=== PATIENT | female | born 1980 | race African-American/Black ===

== ENCOUNTER 2019-06-03 09:41 | Outpatient (CLI) | payer OTHER, SELFPAY ==
[2019-06-03 10:53] LABS: Basophils Percent Auto 0.3 % (0.2-1.2); Eosinophils Absolute Auto 0.2 K/mm3 (0-0.3); Eosinophils Percent Auto 2.3 % (0-4.4); Hematocrit 36.5 % (37.0-47.0); Hemoglobin 11.2 g/dL (12.0-15.0); Immature Granulocyte Absolute 0.05 K/mm3 (0.00-0.031); Immature Granulocyte Percent A 0.6 % (0-0.5); Lymphocytes Absolute Auto 1.53 K/mm3 (0.9-3.2); Lymphocytes Percent Auto 17.3 % (18.3-44.2); Mean Corpuscular HGB Conc 30.7 g/dl (32-36); Mean Corpuscular Hemoglobin 23.8 pg (26-34); Mean Corpuscular Volume 77.7 fl (80-100); Mean Platelet Volume 9.5 fl (7.4-10.4); Monocytes Absolute Auto 0.6 K/mm3 (0.1-0.6); Monocytes Percent Auto 6.7 % (2.6-8.5); Neutrophils Absolute Auto 6.4 K/mm3 (1.3-6.7); Neutrophils Percent Auto 72.8 % (45.5-73.1); Platelet Count Result 362 k/mm3 (150-375); White Blood Count 8.8 K/mm3 (4.5-10.0)
[2019-06-03 11:07] LABS: Alanine Aminotransferase 10 U/L (4-35); Albumin Level 4.2 g/dL (3.5-5.1); Alkaline Phosphatase 85 U/L (38-126); Aspartate Amino Transferase 18 U/L (14-36); Bilirubin,Total 0.3 mg/dL (0.2-1.3); Blood Urea Nitrogen 7 mg/dL (7-17); Calcium 8.7 mg/dL (8.4-10.2); Carbon Dioxide 27 mmol/L (22-30); Chloride 100 mmol/L (98-107); Estimated Glomerular Filt Rate > 60; Glucose 81 mg/dL (65-105); Potassium 3.8 mmol/L (3.4-5.0); Sodium 139 mmol/L (137-145)
[2019-06-03 11:34] LABS: Free T4 Free Thyroxine 0.95 ng/mL (0.78-2.19); Vitamin D 25 Hydroxy 41.8 ng/mL
[2019-06-03 12:12] LABS: Folic Acid 11.5 ng/mL (2.76->20)
[2019-06-10 22:47] LABS: Vitamin D 1,25 (OH)2 Total 46 pg/mL (18-72); Vitamin D2 1,25 (OH)2 46 pg/mL; Vitamin D3 1,25 (OH)2 <8 pg/mL
== END 2019-06-03 09:42 | disposition home or self-care (01) ==
LOC: ANHLAB 09:46
PROVIDERS: PCP Psychiatry & Neurology Neurology; Visit Provider Psychiatry & Neurology Neurology
DX: G35 Multiple sclerosis (principal)
CPT/HCPCS: 36415; 80053; 82306; 82607; 82652; 82746; 84439; 85025

== ENCOUNTER 2024-08-10 09:20 | Outpatient (CLI) | payer OTHER, MEDICAID, SELFPAY ==
--- NOTE | ~2024-08-10 | MR_ITS ---
MRI of the thoracic spine Clinical History: Multiple sclerosis Technique: Axial T2-weighted and gradient images, and sagittal T1-weighted, T2-weighted, and STIR lilli ges were acquired. Following intravenous administration of 20 cc ProHance gadolinium, T1-weighted fat -sat imaging was performed in the axial and sagittal planes. Findings: There is no fracture or subluxation of the thoracic spine. Vertebral bodies maintain normal height and alignment. No bone marrow signal abnormality seen. No disc bulge or herniation seen at any thoracic level. No spinal canal stenosis or cord compression identified. There is bilateral neural foraminal narrowing at T10-T11, left worse than right, with fac et arthropathy at this level. Remaining neural foramina are preserved. No abnormal signal evident in the spinal cord. Paravertebral soft tissues are unremarkable. No abnorm al postcontrast enhancement identified. Impression: No cord lesions identified in the thoracic spinal cord. Bilateral neural foraminal narrowing at T10-T11, left worse than right, largely related to facet arth ropathy. Reviewed, dictated and finalized at [facility]. Impression: No cord lesions identified in the thoracic spinal cord. Bilateral neural foraminal narrowing at T10-T11, left worse than right, largely related to facet arthropathy.
--- NOTE | ~2024-08-10 | MR_ITS ---
MRI of the cervical spine Clinical History: Multiple sclerosis Technique: Axial T2-weighted and gradient images, and sagittal T1-weighted, T2-weighted, and STIR lilli ges were acquired. Following intravenous administration of 20 cc ProHance gadolinium, T1-weighted fat -sat imaging was performed in the axial and sagittal planes. Findings: There is no fracture or subluxation of the cervical spine. There is mild reversal normal ce rvical lordosis. No suspicious bone marrow signal abnormality seen. No significant disc bulge or herniation seen at any cervical level. No spinal canal stenosis, cord co mpression, or neural foraminal narrowing evident at any cervical level. There is a subtle T2 hyperintense cord lesion centrally at the C3-C4 level. Probable additional amorp hous T2 evidence lesion in the cord at the C2 level. Paravertebral soft tissues are unremarkable. No abnormal postcontrast enhancement identified. Impression: Probable vague T2 hyperintense cord lesions at the C2 level and C3-C4 level, which could reflect demy elinating plaques of multiple sclerosis. No abnormal enhancement. No significant degenerative change. Reviewed, dictated and finalized at [facility]. Impression: Probable vague T2 hyperintense cord lesions at the C2 level and C3-C4 level, wh ich could reflect demyelinating plaques of multiple sclerosis. No abnormal enha ncement. No significant degenerative change.
--- NOTE | ~2024-08-10 | MR_ITS ---
MRI of the brain Clinical History: Multiple sclerosis Technique: Axial and sagittal T1-weighted images were acquired. These were followed by axial T2-weigh estefania, diffusion weighted, gradient, and FLAIR images. Following intravenous administration of 20 cc Pr oHance gadolinium, T1-weighted fat-sat imaging was performed in the axial, coronal, and sagittal plan es. Findings: No acute infarct, intracranial hemorrhage, or mass lesion. There are multiple FLAIR hyperin tense white matter lesions in the periventricular white matter bilaterally, may which demonstrate rafi ewhat radiating orientation. Ventricles and subarachnoid spaces are unremarkable. Orbits are unremarkable. Paranasal sinuses and m astoid air cells are clear. Major intracranial flow voids are intact. Sagittal midline structures are intact. No abnormal postcontrast enhancement identified. IMPRESSION: Numerous white matter lesions, compatible with demyelinating lesions of multiple sclerosis. No active /enhancing plaque identified. Reviewed, dictated and finalized at location . IMPRESSION: Numerous white matter lesions, compatible with demyelinating lesions of multipl e sclerosis. No active/enhancing plaque identified.
--- OUTSIDE RECORDS SUMMARY | 2024-08-10 09:58 | XMS_ITS | Encounter Summary ---
Author Organization [facility] Address [address] [place] [address] Phone Care Team Providers Care Shipping Support Name Role Phone Sharifa Deleon NP Primary Care Provider [phone] Dann Rincon MD Primary Care Provider + Encounter Details Date Type Department Care Team (Latest Contact Info) Description 07/31/2017 Orders Only [facility] CONVERSION Scanning, Provider Social History Tobacco Use Types Packs/Day Years Used Date Smoking Tobacco: Never Assessed Comments Unknown Sex and Gender Information Value Date Recorded Sex Assigned at Not on file Legal Sex Female 10:49 PM CDT Gender Identity Not on file Sexual Orientation Not on file documented as of this encounter Plan of Treatment Not on file documented as of this encounter Procedures Procedure Name Priority Date/Time Associated Diagnosis Comments OBSTETRIC/GYNECOLOGY ULTRASONOGRAPHY REPORT 08/27/2017 11:46 AM CDT OBSTETRIC/GYNECOLOGY ULTRASONOGRAPHY REPORT 07/31/2017 11:38 AM CDT documented in this encounter Results * OBSTETRIC/GYNECOLOGY ULTRASONOGRAPHY REPORT (08/27/2017 11:46 AM CDT) Anatomical Region Laterality Modality Ultrasound us Provider Scanning IMG OB US PROCEDURES Final Res ult * OBSTETRIC/GYNECOLOGY ULTRASONOGRAPHY REPORT (07/31/2017 11:38 AM CDT) Anatomical Region Laterality Modality Ultrasound us Provider Scanning IMG OB US PROCEDURES Final Res ult documented in this encounter Visit Diagnoses Not on filedocumented in this encounter Care Teams Shipping Support Relationship Specialty Start Date End Date Sharifa Deleon NP PCP - General 10/04/16 01/17/20 Dann Rincon MD [address] [place] [id number] PCP - General Internal Medicine 01/18/20 documented as of this encounter
--- OUTSIDE RECORDS SUMMARY | 2024-08-10 09:58 | XMS_ITS | Encounter Summary ---
Author Organization [facility] Address [address] [place] [address] Phone Care Team Providers Care Flat Breakdown Processor Name Role Phone Sharifa Deleon NP Primary Care Provider [phone] Dann Rincon MD Primary Care Provider + Encounter Details Date Type Department Care Team (Late st Contact Info) Description 08/07/2017 Orders Only [facility] ProviderAshley MD [address] [place] [id number] Social History Tobacco Use Types Packs/Day Years [...] Procedure Name Priority Date/Time Associated Diagnosis Comments DISCHARGE LABORATORY CUMULATIVE REPORT 08/07/2017 12:00 AM CDT documented in this encounter Results * DISCHARGE LABORATORY CUMULATIVE REPORT (08/07/2017 12:00 AM CDT) Narrative 08/07/2017 12:00 AM CDT Ordered by an unspecified provider. Historical Provider LAB BLOOD ORDERABLES Mare l Result documented in this encounter Visit Diagnoses Not on filedocumented in this encounter Care Teams Flat Breakdown Processor Relationship Specialty Start Date End Date Sharifa Deleon NP PCP - General 10/04/16 01/17/20 Dann Rincon MD [address] [place] [address] PCP - General Internal Medicine 01/18/20 documented as of this encounter
--- OUTSIDE RECORDS SUMMARY | 2024-08-10 09:58 | XMS_ITS | Clinical Summary ---
Author Organization [facility] Address [address] [place] [address] Care Team Providers Care Tower Supervisor Name Role Phone Unavailable Primary Care Provider Unavailabl e Source Comments [facility],non-owned Affiliates and Associated Physician Practices is amultiple site organization consisting of ambulatory clinics and hospital sitesin [place], [place] and [place]. This disclosure is being madepursuant to the Care Everywhere program and may not contain all information available regarding this patient. Last updated 18.[facility] Social History Tobacco Use Types Packs/Day Years Used Date Smoking Tobacco: Never Assessed Comments No Sex and Gender Information Value Date Recorded Sex Assigned at Not on file Legal Sex Female 7:23 AM SUPERVISOR TESTING Gender Identity Not on file Sexual Orientation Not on file Plan of Treatment Health Maintenance Due Date Last Done Comments LIPID TESTING 1981 MAMMOGRAM 1981 HIV SCREENING 1996 HEPATITIS C SCREENING 10/01/1999 DTAP/TDAP/TD VACCINES (1 - Tdap) 2000 HEPATITIS B VACCINE (1 of 3 - 19+ 3-dose series) 2000 COVID-19 VACCINE ( - 2023-2 5 season) 2023 DEPRESSION SCREENING 04/13/2024 INFLUENZA VACCINE (Season Ended) 2024 ZOSTER VACCINE (1 of 2) 10/06/2031 HIB VACCINE Aged Out No longer eligi ble based on patient's age to complete this topic HPV VACCINE Aged Out No longer eligi ble based on patient's age to complete this topic MENINGOCOCCAL (Group B) VACC INE SHARED DECISION-MAKING Aged Out No longer eligibl e based on patient's age to complete this topic MENINGOCOCCAL GROUPS A/C/Y/W VACCINE Aged Out No longer eligible b ased on patient's age to complete this topic PNEUMOCOCCAL VACCINE Aged Out No long er eligible based on patient's age to complete this topic
--- OUTSIDE RECORDS SUMMARY | 2024-08-10 09:59 | XMS_ITS | Referral Summary ---
Author Organization [facility] Address [address] [place] [address] Care Team Providers Care Python Django Developer Name Role Phone Dann Rincon MD Primary Care Provider + Encounters Date Type Department Care Team Description 07/23/2024 1:55 AM CDT - 07/23/2024 3:00 AM CDT Emergency [address] [address] Pruritic dermatitis (Primary Dx) Discharge Disposition: Discharge to home or self care from Last 3 Months Allergies No known active allergies Medications Tecfidera 240 mg capsule,delayed release(DR/EC) daily 0 Active cholecalciferol (VITAMIN D-3) 50,000 unit capsule Take 1 capsule (50,000 Units total) by mouth once a week 3 Active Aczone 7.5 % gel with pump Apply topically daily 4 Active spironolactone (ALDACTONE) 100 mg tablet Take 1 tablet (100 mg total) by mouth daily 4 Active tretinoin (RETIN-A) 0.05 % cream Apply topically nightly 4 Active predniSONE (DELTASONE) 20 mg tablet Take 1 tablet (20 mg) by mouth daily for 5 days 5 tablet 5 07/29/19 25 Active Problems Problem Noted Date Diagnosed Date Rash 11/19/2022 Assessment & Plan (11/19/2022 10:02 AM CDT): Onset 2 weeks ago, didn't improve after prednisone pack.Will try triamcinolone cream. Discussed with pt to change detergent. Morbid obesity with BMI of 40.0-44.9, adult 10/2019 Assessment & Plan (09/14/2023 2:13 PM CDT): Patient lost near 40 lb on phentermine which she stopped 4 months ago due to weight plateau. Since then gained 15 lb back. Eating more. I discussed with patient medical treatment options. She has not diabetic and GLP-1 will not be covered by insurance. Patient did not want to pay out of the pocket. She agreed to try phentermine again. Also discussed importance of eating less and start exercising. Assessment & Plan (11/19/2022 10:00 AM CDT): Improving, cont weight loss Assessment & Plan (01/16/2021 9:29 AM CDT): BMI Follow-up includes: nutrition counseling. Stress weight loss. Will refer to mobile unit assistant. Assessment & Plan (01/18/2020 1:42 PM CDT): BMI Follow-up includes: exercise counseling. Wellness examination 09/22/2017 Assessment & Plan (11/19/2022 10:03 AM CDT): Recent labs 2 months ago: CMP, lipid panel, thyroid function, hemoglobin A1c were normal. CBC showed mild anemia with hemoglobin 10.9 with baseline 10.2 to 11.5. Last pap 1 y ago, was done by ICT ANALYST. Stress more weight loss. Assessment & Plan (01/16/2021 9:22 AM CDT): Stress weight loss. Consider covid shots. Multiple sclerosis 10/07/2016 Overview (01/11/2018): - Diagnosed 09/2016. Flare symptoms: tingling in the hands and feet. Asymptomatic this . - Previously discussed that MS often improves in and worsens in the PP period. - Brain MRI (06/10/2017): Multiple intracranial white matter lesions compatible with multiple sclerosis, as well as a lesion in the dorsal cervical cord. Other significant findings: Empty sella. - Follows with [facility] Neurology. - Per Neuro (06/2017): discontinued pre-pregnacy Tecfidera 240mg BID and Meclizine TID PRN. - Last Neuro visit (08/18/2017): consider Tysabri and/or Tecfidera if not - Visit 12/17: Tecfidera on PPD1 if not Plan: - Continue to follow up with Neurology as scheduled. Per 12/17 note, plan was to start Tecfidera 1 day post delivery (not safe in breast feeding) - Patient planning to breastfeed, discuss with neurology inpatient HOSPITAL PLAN: - Restart Tecfidera 1 day post delivery. In discussion with patient, she plans on bottle feeding. Assessment & Plan (11/19/2022 10:01 AM CDT): Follows with neurologist. Stable on tecfidera. Assessment & Plan (01/16/2021 9:21 AM CDT): Follows with neurologist. Stable on tecfidera. Assessment & Plan (01/18/2020 1:29 PM CDT): Stable on Tecfidera. Follows with neurology. Resolved Problems Problem Noted Date Diagnosed Date Resolved Date Physical exam, pre-employment 12/27/2021 11/19/2022 Assessment & Plan (12/27/2021 10:01 AM CDT): No abnormal findings on physical exam to preclude employment. Administered the 1st step of 2 step PPD test, advised will need to have site read in 48-72 hours, and to return in 1-3 weeks to have 2nd step of PPD test placed. A urine specimen was collected for 5 panel drug screen. Drug screening, pre-employment 12/27/2021 11/19/2022 Assessment & Plan (12/27/2021 10:01 AM CDT): Administered the 1st step of 2 step PPD test, advised will need to have site read in 48-72 hours, and to return in 1-3 weeks to have 2nd step of PPD test placed. PPD screening test 12/27/2021 3 Assessment & Plan (12/27/2021 10:01 AM CDT): A urine specimen was collected for 5 panel drug screen. Daytime somnolence 01/16/2021 3 Assessment & Plan (11/19/2022 10:05 AM CDT): Resolved on it's own. Pt didn't do sleep study Assessment & Plan (01/16/2021 9:29 AM CDT): Will refer to sleep study for possible ADRIEN. Stress weight loss, it can greatly contribute to ADRIEN. delivery, delivered , current hospitalization 01/12/2018 01/18/2020 Overview (01/13/2018): #ID: Afebrile. No signs/symptoms of infection. HepB neg, HIV neg, Rubella immune #Heme: EBL 800 mL. hematocrit 34.6 --> 32.0. No symptoms acute blood loss anemia. Rh neg and infant Rh +, Rhogam administered 11/24 and 01/12. #CV/Pulm: --Chronic hypertension , normal to mild range, asymptomatic, no indication for medical therapy at this time. CTM BP today. #GI/: Tolerating PO. Voiding spontaneously. #Pain: Controlled with oral regimen. #DVT prophylaxis: sequential compression devices; no indication for prophylactic lovenox at this time - only 2 moderate risk factors (obesity, age >35) does not meet criteria #MOC: s/p BTL #MOF: Formula feeding #MS: started own Tecfidera as not on formulary - pharmacy aware; with neuro follow-up on 04/08/2018 #Disposition: Patient desires early discharge if possible - meeting post-op milestones. Delivery by elective section 01/11/2018 01/18/2020 Overview (01/11/2018): - Consents signed - T&S/CBC sent - BTL papers mature and visualized Supervision of high-risk pre gnancy, third trimester 12/29/2017 01/18/2020 Overview (12/29/2017): Added automatically from request for surgery [id number] Rh negative state in antepartum period 12/08/2017 01/18/2020 Overview (12/29/2017): - Rh negative. - s/p Rhogam on 11/24/17. - For PP work up. Chronic hypertension 09/15/2017 020 Overview (01/11/2018): - No meds, BP wnl - s/p counseling on risk of cHTN in including preE, eclampsia, abruption, IUGR, PTB, stillbirth. Checklist: [x] Baseline labs (06/18/17): AST/ALT 28/01, Cr 0.54. Plts 332 (11/2017). EKG sinus tachycardia o/w WNL [x] 24hr UP (10/20/17): 94 [x] EKG: sinus tachy [x] TTE- nl with nl EF [] ASA81 - has not been taking previously. Will no longer pursue given GA >32wk [] No indication for testing given no medications required. [x] Serial growth US q4wks. Last 12/03/17: 2038g (18%), next scheduled 12/31 [] For delivery at 39wks Plan: - Continue to take BP at home (reports 120's/70's) - Continue q4wk growth US (12/31) - Counselled on preeclampsia symptoms. HOSPITAL PLAN: - Asymptomatic and normotensive on admission - CTM BP while inpatient Assessment & Plan (09/22/2017 11:10 AM CDT): [] f/up echo [] baseline 24h urine History of delivery 09/15/2017 01/18/2020 Overview (12/08/2017): - C/S x1 2/2 breech - Discussed riks/benefits/alternatives of TOLAC versus repeat including rupture and bleeding/infection/damage to surrounding organs. - Patient would like a repeat CS with BTL Supervision of high-risk pre gnancy, unspecified trimester 09/15/2017 01/18/2020 Overview (01/11/2018): IOB Labs: [x] Dating Criteria: 2nd trim US [x] Labs: Rh B negative, Ab negative, Rubella immune, HIV negative, HepBSAg negative, RPR negative [x] Genetic Screening: cffDNA low risk [x] Hgb electrophoresis: AA [x] GC/CT,UCx-insig growth [x] Pap: cotesting negative (08/04/17) [] PNBHS referral (if indicated) 2nd Tri Labs: [x] Anatomy scan: EIF noted, otherwise normal. [x] CBC: Hgb 10.7, plts 332 [x] 1hr gtt at 24-28wks: 113. [] Flu Shot (Dec-Mar) [x] Tdap (27-36wks) - given 11/24 [x] Rhogam (if Rh neg) - given 11/24 3rd Tri Labs: [x] CBC/HIV/RPR/T&S [x] GBS: neg [x] GC/CT (if indicated): neg/neg Counselling [x] MOD: Plans to have repeat CS+BTL, 01/11 1130 for 1330 [x] MOC: BTL- tubal papers signed 09/22/17 [x] Method of feeding: Initially planning bottle, s/p counseling, considering breast feeding for first 2 weeks PP [x] Assistant Store Manager: Patient still considering [x] Car seat Discussed [x] PP Depression Discussed [x] s/p /4 attending visits Antepartum multigravida of a dvanced maternal age 0609/15/2017 01/18/2020 Overview (12/08/2017): - EIF on anatomy, o/w WNL - NIPT WNL Immunizations Immunization Administration Dates Next Due Influenza, Unspecified 10/26/2023(Deferr ed: Patient decision),01/13/2022(Deferred: Patient decision) PPD TEST 12/27/2021 Tdap 11/24/2017 Social History Tobacco Use Types Packs/Day Years Used Date Smoking Tobacco: Never Smokeless Tobacco: Never Tobacco Cessation:Counseling Given: Not Answered Alcohol Use Standard Drinks/Week Comments Yes 0 (1 standard drink = 0.6 oz pur e alcohol) socially AUDIT-C Answer Date Recorded Q1: How often do you have a drink containing alcohol? Never 09/14/2023 Q2: How many drinks containi ng alcohol do you have on a typical day when you are drinking? Patient does not drink Q3: How often do you have si x or more drinks on one occasion? Never 09/14/2023 PHQ-2 Answer Date Recorded PHQ-2 Total Score 0 09/14/2023 Personal Safety Answer Date Recorded Have you ever been in or are you currently in a harmful physical or emotional relationship or is someone making you feel afraid or unsafe? Denies 07/23/2024 Comments No Sex and Gender Information Value Date Recorded Sex Assigned at Not on file Legal Sex Female 10:49 PM CDT Gender Identity Not on file Sexual Orientation Not on file Last Filed Vital Signs Vital Sign Reading Time Taken Comments Blood Pressure 133/89 07/23/2024 2:30 AM CDT Pulse 100 07/23/2024 2:30 AM CDT Temperature 36.8 C (98.2 F) 07/23/2024 1:29 AM CDT Respiratory Rate 18 07/23/2024 2:30 AM CDT Oxygen Saturation 100% 07/23/2024 2:30 AM CDT Inhaled Oxygen Concentration - - Weight 110.2 kg (242 lb 15.2 oz) 07/23/2024 1:31 AM CDT Height 154.9 cm (5' 1 ) 02/26/2024 8:54 AM BUSINESS TRAVEL CONSULTANT Body Mass Index 45.9 02/26/2024 8:54 AM BUSINESS TRAVEL CONSULTANT Plan of Treatment Not on file Procedures Procedure Name Priority Date/Time Associated Diagnosis Comments EGFR STAT 07/23/2024 1:43 AM CDT DIFFERENTIAL AUTO STAT 07/23/2024 1:4 3 AM CDT COMPREHENSIVE METABOLIC PANEL STAT 07/23/2024 1:43 AM CDT CBC WITH AUTO DIFFERENTIAL STAT 07/23/2024 1:43 AM CDT from Last 3 Months Results * eGFR (07/23/2024 1:43 AM CDT) [facility] eGFR >90 >=60 mL/min/1. 73 m2 Comment: Interpretive Data Reference Interval Normal >/= 90 mL/min/1.73m2 Mildly decreased* 60 - 89 mL/min/1.73m2 Mildly to moderately decreased 45 - 59 mL/min/1.73m2 Moderately to severely decreased 30 - 44 mL/min/1.73m2 Severely decreased 15 - 29 mL/min/1.73m2 Kidney Failure < 15 mL/min/1.73m2 *Relative to young adult level Estimated glomerular filtration rate is determined by the 2020 CKD-EPI equation recommended by the National Kidney Foundation (A Unifying Approach to GFR Estimation: Recommendations of the NKF-ASK Task Force on Reassessing the Inclusion of Race in Diagnosing Kidney Disease, JASN 2020). The CKD-EPI equation should not be used for patients with unstable renal function and has not been validated in children and those over 70. Current interpretive data was last reviewed 2021. Blood 07/23/2024 1:43 AM CDT 07/23/2024 1:47 AM CDT us Tangela MCCLOUD LAB BLOOD ORDERABLES Final [facility] [address] [facility] Department [place] [address] * Differential, auto (07/23/2024 1:43 AM CDT) [facility] Neutrophil abs 6.43 1.50 - 6.50 K/cumm Imm gran abs 0.03 0.00 - 0.10 K/cumm [facility] Lymphocyte abs 2.57 0.80 - 3.30 K/cumm [facility] Monocyte abs 0.73 0.20 - 0.80 K/cumm [facility] Eosinophil abs 0.19 0.00 - 0.50 K/cumm [facility] Basophil abs 0.03 0.00 - 0.10 K/cumm [facility] Neutrophil pct 64.4 % [facility] Comment: Interpretive Data Percent cell count reference ranges are not reported, since discordance with absolute values may lead to misinterpretation of CBC data. Current Interpretive Data was last revised on 2017. Imm gran pct 0.3 % [facility] Comment: Interpretive Data Percent cell count reference ranges are not reported, since discordance with absolute values may lead to misinterpretation of CBC data. Current Interpretive Data was last revised on 2017. Lymphocyte pct 25.8 % [facility] Comment: Interpretive Data Percent cell count reference ranges are not reported, since discordance with absolute values may lead to misinterpretation of CBC data. Current Interpretive Data was last revised on 2017. Monocyte pct 7.3 % [facility] Comment: Interpretive Data Percent cell count reference ranges are not reported, since discordance with absolute values may lead to misinterpretation of CBC data. Current Interpretive Data was last revised on 2017. Eosinophil pct 1.9 % [facility] Comment: Interpretive Data Percent cell count reference ranges are not reported, since discordance with absolute values may lead to misinterpretation of CBC data. Current Interpretive Data was last revised on 2017. Basophil pct 0.3 % [facility] Comment: Interpretive Data Percent cell count reference ranges are not reported, since discordance with absolute values may lead to misinterpretation of CBC data. Current Interpretive Data was last revised on 2017. Blood 07/23/2024 1:43 AM CDT 07/23/2024 1:47 AM CDT us Tangela MCCLOUD LAB BLOOD ORDERABLES Final R esult [facility] [address] [facility] Department [place] [address] * (ABNORMAL) CBC with auto differential (07/23/2024 1:43 AM CDT) WBC 9.98(H) 3.80 - 9.90 K/cumm Hgb 11.3(L) 11.9 - 15.5 g/dL [facility] Hct 35.4(L) 35.6 - 45.5 % [facility] Plt 328 150 - 400 K/cumm [facility] MPV 9.3 9.1 - 12.3 fL [facility] RBC 4.54 3.90 - 5.20 M/cumm [facility] MCV 78.0(L) 81.3 - 96.4 fL [facility] MCH 24.9(L) 27.1 - 33.3 pg [facility] MCHC 31.9(L) 32.3 - 35.7 g/dL [facility] RDW CV 14.6 11.1 - 14.9 % [facility] RDW SD 41.2 35.7 - 48.1 fL [facility] NRBC abs 0.00 0.00 - 0.01 K/cumm [facility] Blood 07/23/2024 1:43 AM CDT 07/23/2024 1:47 AM CDT Tangela MCCLOUD LAB BLOOD ORDERABLES Final R esult [facility] [address] [facility] Department [place] [address] * (ABNORMAL) Comprehensive metabolic panel (07/23/2024 1:43 AM CDT) Sodium 136 135 - 145 mmol/L Potassium, pl 3.7 3.3 - 4.9 mmol/L [facility] Chloride 103 97 - 110 mmol/L [facility] CO2 23 22 - 32 mmol/L [facility] Anion gap 10 2 - 15 mmol/L [facility] BUN 12 6 - 25 mg/dL [facility] Creatinine 0.58(L) 0.60 - 1.10 mg/dL [facility] Glucose 103 70 - 199 mg/dL [facility] Comment: Interpretive Data Fasting glucose >/= 126 mg/dl is diagnostic for diabetes. Fasting is defined as no caloric intake for at least 8 hours. Fasting glucose between 100 mg/dl to 125 mg/dl is diagnostic of prediabetes. In a patient with classic symptoms of hyperglycemia or hyperglycemic crisis, a random glucose >/= 200 mg/dl is diagnostic for diabetes. In the absence of unequivocal hyperglycemia, results should be confirmed by repeat testing. The classification and Diagnosis of Diabetes Diabetes Care 2021; 46: S19-S40. Current interpretive data was last revised 2022. Calcium 8.9 8.5 - 10.3 mg/dL [facility] Bilirubin, total 0.2 0.1 - 1.2 mg/dL [facility] Protein, pl 7.8 6.5 - 8.5 g/dL [facility] Albumin 4.0 3.5 - 5.0 g/dL [facility] Alk phos 86 40 - 130 Units/L [facility] ALT 6(L) 7 - 45 Units/L [facility] AST 15 10 - 45 Units/L [facility] Blood 07/23/2024 1:43 AM CDT 07/23/2024 1:47 AM CDT us Tangela MCCLOUD LAB BLOOD ORDERABLES Final R esult [facility] [address] [facility] Department [place] [address] from Last 3 Months Insurance [facility] HMO/PPO Address: [facility] [address] [place] [address] Advance Directives For more information, please contact: [phone] * Full Code (Latest Code Status on File) Date Activated Date Inactivated Comments 01/11/2018 5:43 PM 01/13/2018 8:21 PM * Full Code Date Activated Date Inactivated Comments 01/11/2018 11:05 AM 01/11/2018 5:43 PM Full CPR in case of cardiopulmonary arrest Care Teams Python Django Developer Relationship Specialty Start Date End Date Dann Rincon MD [address] [facility] [place] [id number] PCP - General Internal Medicine 01/18/20
--- OUTSIDE RECORDS SUMMARY | 2024-08-10 09:59 | XMS_ITS | Clinical Summary ---
Author Organization [facility] Address [address] [place] [address] Care Team Providers Care Sole Stapler Welt Name Role Phone Dann Rincon MD Primary Care Provider + Allergies No known active allergies Medications Tecfidera 240 mg capsule,delayed release(/EC) daily 0 Active cholecalciferol (VITAMIN D-3) 50,000 [...] counseling. Stress weight loss. 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 Assessment & Plan (01/18/2020 1:42 PM CDT): BMI Follow-up includes: exercise counseling. Wellness examination 09/22/2017 Assessment & Plan (11/19/2022 10:03 AM CDT): Recent labs 2 months ago: CMP, lipid panel, thyroid function, hemoglobin A1c were normal. CBC showed mild anemia with hemoglobin 10.9 with baseline 10.2 to 11.5. Last pap 1 y ago, was done by [employer]. Stress more weight loss. Assessment & Plan [...] significant findings: Empty sella. - Follows with [facility] Neurology. - Per Neuro (06/2017): discontinued pre-pregnacy [...] PPD test placed. PPD screening test 12/27/2021 Assessment & Plan (12/27/2021 10:01 AM CDT): A urine specimen was collected for 5 panel drug screen. Daytime somnolence 01/16/2021 Assessment & Plan (11/19/2022 10:05 AM CDT): [...] acute blood loss anemia. Rh neg and Rh +, Rhogam administered 11/24 and 01/12. [...] (12/29/2017): Added automatically from request for surgery [id number] Rh negative state in antepartum period 12/08/2017 01/18/2020 Overview (12/29/2017): - Rh negative. - s/p Rhogam on 11/24/17. - For PP work up. Chronic hypertension 09/15/2017 020 Overview (01/11/2018): - No meds, BP wnl - s/p counseling on risk of cHTN in including preE, eclampsia, abruption, IUGR, PTB, stillbirth. Checklist: [x] Baseline labs (06/18/17): AST/ALT /, Cr 0.54. Plts 332 (11/2017). EKG sinus [...] feeding for first 2 weeks PP [x] Career Resource Specialist: Patient still considering [x] Car seat Discussed [x] PP Depression Discussed [x] s/p / attending visits Antepartum multigravida of a dvanced maternal age 0609/15/2017 01/18/2020 Overview (12/08/2017): - EIF on anatomy, o/w WNL - NIPT WNL Encounters Date Type Department Care Team Description 07/23/2024 1:55 AM CDT - 07/23/2024 3:00 AM CDT Emergency [address] [address] Pruritic dermatitis (Primary Dx) Discharge Disposition: Discharge to home or self care from Last 3 Months Immunizations Immunization Administration Dates Next Due Influenza, Unspecified 10/26/2023(Deferr ed: Patient decision),01/13/2022(Deferred: Patient decision) PPD TEST 12/27/2021 Tdap 11/24/2017 Surgical History Surgery Date Site/Laterality Comments SECTION 11/02/2006 N/A TUBAL LIGATION SECTION 01/11/2018 N/A Medical History Medical History Date Comments MS (multiple sclerosis) (HCC) Family History Medical History Relation Name Comments Leukemia Father Hypertension Mother Myasthenia gravis Mother Breast cancer Neg Hx Ovarian cancer Neg Hx Relation Name Status Comments Father Mother Alive Social History Tobacco Use Types Packs/Day Years [...] on file Sexual Orientation Not on file Obstetrics History Para Term AB IAB SAB Ectopic Multiple Livin g Live Births 2 2 2 0 2 2 Date Outcome GA Total Labor Labor/2nd/3rd Weight Sex Type Anes PTL Julianne A1 A5 Name Clin Term 39w 0d CS-LT ranv Livin g 018 Term 39w 2d 0h 01m 0h 01m 3.29 kg (7 lb 4.1 oz) M CS-LT ranv Epidu ral,S dwaine N Livin g 2 4 Eloisa SANTIAGO AMS, Laura James, MD Delivery Location:[facility] Main C ampus ([facility]) Comments Primary C/S 2/2 breech prese ntation Last Filed Vital Signs Vital Sign Reading [...] cm (5' 1 ) 02/26/2024 8:54 AM REHAB MANAGER Body Mass Index 45.9 02/26/2024 8:54 AM REHAB MANAGER Plan of Treatment Health Maintenance Due Date Last Done Comments Breast Cancer Screening-Mammogram 1981 Cervical Cancer Screening 1981 Hepatitis C Screening 1981 Varicella Vaccines (1 of 2 - 13+ 2-dose series) 1994 Hepatitis B Screening 10/06/1999 Regular Well Visit/Exam 18-64 11/20/2023 11/19/2022, 01/16/2021 Depression Screening 09/13/2024 09/14/2023, 11/19/2022, 01/16/2021, Additional history exists Influenza Vaccine (Season Ended) 2024 DTaP/Tdap/Td Vaccine (2 - Td or Tdap) 11/25/2027 11/24/2017 HPV Vaccines Aged Out No longer eligi ble based on patient's age to complete this topic Pneumococcal vaccine <65 Aged Out No longer eligible based on patient's age to complete this topic Procedures Procedure Name Priority Date/Time Associated Diagnosis Comments EGFR STAT 07/23/2024 1:43 AM CDT DIFFERENTIAL AUTO STAT 07/23/2024 1:4 3 AM CDT COMPREHENSIVE METABOLIC PANEL STAT 07/23/2024 1:43 AM CDT CBC WITH AUTO DIFFERENTIAL STAT 07/23/2024 1:43 AM CDT from Last 3 Months Results * eGFR (07/23/2024 1:43 AM CDT) eGFR >90 >=60 mL/min/1. 73 m2 Comment: [...] of Race in Diagnosing Kidney Disease, JASN 202). The CKD-EPI equation should not be used for patients with unstable renal function and has not been validated in children and those over 70. Current interpretive data was last reviewed 2021. Blood 07/23/2024 1:43 AM CDT 07/23/2024 1:47 AM CDT us Tangela MCCLOUD LAB BLOOD ORDERABLES Final R esult [place] [id number] [facility] Department [place] [address] * Differential, auto (07/23/2024 1:43 AM CDT) Pathologist [facility] [place] Neutrophil abs 6.43 1.50 - 6.50 K/cumm Imm gran abs 0.03 0.00 - 0.10 K/cumm [facility] Lymphocyte abs 2.57 0.80 - 3.30 K/cumm [facility] Monocyte abs 0.73 0.20 - 0.80 K/cumm [facility] Eosinophil abs 0.19 0.00 - 0.50 K/cumm [facility] Basophil abs 0.03 0.00 - 0.10 K/cumm [facility] Neutrophil pct 64.4 % [facility] Comment: Interpretive Data Percent cell count reference ranges are not reported, since discordance with absolute values may lead to misinterpretation of CBC data. Current Interpretive Data was last revised on 2017. Imm gran pct 0.3 % [facility] Comment: Interpretive Data Percent cell count reference ranges are not reported, since discordance with absolute values may lead to misinterpretation of CBC data. Current Interpretive Data was last revised on 2017. Lymphocyte pct 25.8 % [facility] Comment: Interpretive Data Percent cell count reference ranges are not reported, since discordance with absolute values may lead to misinterpretation of CBC data. Current Interpretive Data was last revised on 2017. Monocyte pct 7.3 % [facility] Comment: Interpretive Data Percent cell count reference ranges are not reported, since discordance with absolute values may lead to misinterpretation of CBC data. Current Interpretive Data was last revised on 2017. Eosinophil pct 1.9 % [facility] Comment: Interpretive Data Percent cell count reference ranges are not reported, since discordance with absolute values may lead to misinterpretation of CBC data. Current Interpretive Data was last revised on 2017. Basophil pct 0.3 % [facility] Comment: Interpretive Data Percent cell count reference ranges are not reported, since discordance with absolute values may lead to misinterpretation of CBC data. Current Interpretive Data was last revised on 2017. Blood 07/23/2024 1:43 AM CDT 07/23/2024 1:47 AM CDT us Tangela MCCLOUD LAB BLOOD ORDERABLES Final R esult [facility] [address] [facility] Department [place] [address] * (ABNORMAL) CBC with auto differential (07/23/2024 1:43 AM CDT) WBC 9.98(H) 3.80 - 9.90 K/cumm Hgb 11.3(L) 11.9 - 15.5 g/dL [facility] Hct 35.4(L) 35.6 - 45.5 % [facility] Plt 328 150 - 400 K/cumm [facility] MPV 9.3 9.1 - 12.3 fL [facility] RBC 4.54 3.90 - 5.20 M/cumm [facility] MCV 78.0(L) 81.3 - 96.4 fL [facility] MCH 24.9(L) 27.1 - 33.3 pg [facility] MCHC 31.9(L) 32.3 - 35.7 g/dL [facility] RDW CV 14.6 11.1 - 14.9 % [facility] RDW SD 41.2 35.7 - 48.1 fL [facility] NRBC abs 0.00 0.00 - 0.01 K/cumm [facility] Blood 07/23/2024 1:43 AM CDT 07/23/2024 1:47 AM CDT Tangela MCCLOUD LAB BLOOD ORDERABLES Final R esult [facility] [address] [facility] Department [place] [address] * (ABNORMAL) Comprehensive metabolic panel (07/23/2024 1:43 AM CDT) Sodium 136 135 - 145 mmol/L Potassium, pl 3.7 3.3 - 4.9 mmol/L [facility] Chloride 103 97 - 110 mmol/L [facility] CO2 23 22 - 32 mmol/L [facility] Anion gap 10 2 - 15 mmol/L [facility] BUN 12 6 - 25 mg/dL [facility] Creatinine 0.58(L) 0.60 - 1.10 mg/dL [facility] Glucose 103 70 - 199 mg/dL [facility] Comment: Interpretive Data Fasting glucose >/= [...] 2022. Calcium 8.9 8.5 - 10.3 mg/dL [facility] Bilirubin, total 0.2 0.1 - 1.2 mg/dL [facility] Protein, pl 7.8 6.5 - 8.5 g/dL [facility] Albumin 4.0 3.5 - 5.0 g/dL [facility] Alk phos 86 40 - 130 Units/L [facility] ALT 6(L) 7 - 45 Units/L [facility] AST 15 10 - 45 Units/L [facility] Blood 07/23/2024 1:43 AM CDT 07/23/2024 1:47 AM CDT Tangela MCCLOUD LAB BLOOD ORDERABLES Final R esult [facility] [address] [facility] Department [place] [address] from Last 3 Months Insurance [facility] Advance Directives For more information, please contact: [phone] * Full Code (Latest Code Status on File) Date Activated Date Inactivated Comments 01/11/2018 5:43 PM 01/13/2018 8:21 PM * Full Code Date Activated Date Inactivated Comments 01/11/2018 11:05 AM 01/11/2018 5:43 PM Full CPR in case of cardiopulmonary arrest Care Teams Sole Stapler Welt Relationship Specialty Start Date End Date Dann Rincon MD [address] [place] [address] PCP - General Internal Medicine 01/18/20
--- OUTSIDE RECORDS SUMMARY | 2024-08-10 09:59 | XMS_ITS | Clinical Summary ---
Author Organization [facility] Address [address] [place] [address] Care Team Providers Care Scheduling Specialist Name Role Phone Sharifa Deleon NP Primary Care Provider [phone] Allergies No known active allergies Medications D3-50 1.25 MG (69006 UT) capsule Take 1 capsule (1.25 mg total) by mouth once a week. 3 Active dimethyl fumarate (TECFIDERA) 240 MG CAPSULE DELAYED RELEASE capsule Take 1 capsule (240 mg total) by mouth 2 (two) times daily. 3 Active EPINEPHrine 0.3 MG/0.3ML injection Inject 0.3 mLs (0.3 mg total) into the muscle as needed for Anaphylaxis. 2 each 3 Active famotidine (PEPCID) 20 MG tablet Take 1 tablet (20 mg total) by mouth 2 (two) times daily as needed (itchiness). 20 tablet 3 Active diphenhydrAMINE (BENADRYL) 25 MG tablet Take 1 tablet (25 mg total) by mouth every 8 (eight) hours as needed for Itching. This medication can make you sleepy 15 tablet 3 Active Social History Tobacco Use Types Packs/Day Years Used Date Smoking Tobacco: Never Assessed Comments No Sex and Gender Information Value Date Recorded Sex Assigned at Not on file Legal Sex Female 4:24 PM CDT Gender Identity Not on file Sexual Orientation Not on file Last Filed Vital Signs Vital Sign Reading Time Taken Comments Blood Pressure 123/58 11/11/2022 8:19 AM CDT Pulse 84 11/11/2022 8:19 AM CDT Temperature 36.9 C (98.4 F) 11/11/2022 8:19 AM CDT Respiratory Rate 18 11/11/2022 8:19 AM CDT Oxygen Saturation 99% 11/11/2022 8:19 AM CDT Inhaled Oxygen Concentration - - Weight 97.5 kg (215 lb) 11/11/2022 8:19 AM CDT Height 162.6 cm (5' 4 ) 11/11/2022 8:19 AM CDT Body Mass Index 36.9 11/11/2022 8:19 AM CDT Plan of Treatment Upcoming Encounters Date Type Department Care Team (Late st Contact Info) Description 08/16/2024 10:20 AM CDT Office Visit [facility] - [place] [address] [place] [id number] Little Whaley PA-C [address], [place] [id number] Health Maintenance Due Date Last Done Comments Cervical Cancer Screening Pa p Smear (Age 30 to 64) Every 3 Years 1981 Annual Physical 1984 Hepatitis C 10/06/1999 Hepatitis B Vaccines (1 of 3 - 19+ 3-dose series) 2000 Cervical Cancer Screening Pa p with HPV Testing (Age 30 to 64) Every 5 Years 10/06/2011 Cervical Cancer Screening with HPV 10/06/2011 Mammogram Screening 2021 COVID-19 Vaccine (2023-2 5 season) 2023 PHQ-2 (Physician Soquel) 04/13/2024 DTaP, Tdap and Td Vaccines ( 2 - Td or Tdap) 11/25/2027 11/24/2017 HPV Vaccines Aged Out No longer eligi ble based on patient's age to complete this topic Meningococcal B Vaccine Aged Out No l onger eligible based on patient's age to complete this topic Meningococcal Vaccine Aged Out No jessika lolita eligible based on patient's age to complete this topic Pneumococcal Vaccine: Pediat rics (0 to 5 Years) and At-Risk Patients (6 to 49 Years) Aged Out No longer eligi ble based on patient's age to complete this topic RSV Immunizations Under 20 Months Aged Out No longer eligible based on patient's age to complete this topic Insurance [facility] Care Teams Scheduling Specialist Relationship Specialty Start Date End Date Sharifa Deleon NP [address] [facility] [address] [place] [address] PCP - General 04/30/16
== END 2024-08-10 09:21 | disposition home or self-care (01) ==
PROVIDERS: Visit Provider Student in an Organized Health Care Education/Training Program
DX: G35 Multiple sclerosis (principal); R93.0 Abnormal findings on diagnostic imaging of skull and head, not elsewhere classified
CPT/HCPCS: 70553; 72156; 72157; A9579